=== PATIENT | female | born 1945 | race Caucasian/White ===

== ENCOUNTER 2018-07-25 11:16 | Observation (INO) ==
--- NOTE | 2018-07-25 11:28 | Emergency Department Note ---
Disposition Clinical Impression: Acute exacerbation of chronic obstructive airways disease, Influenza A Disposition: Admitted As Inpatient Condition: Fair Referrals: NONE,PCP [Non-Partnered Physician] - SOB HPI - General Chief Complaint: ED Shortness of Breath/Dyspnea Stated Complaint: Possible Pneumonia low O2 sats Time Seen by Provider: 07/25/18 11:25 Source: patient, family, other (Medical office) Mode of arrival: wheelchair Limitations: age Nursing Notes Reviewed: Yes Vital Signs Reviewed: Yes - History of Present Illness Patient presented to her family doctor today with cough and congestion is worsening over at least 3 weeks. She states she has been worse for especially last 2-3 days. At the office her saturation was 85% on room air, she is started on supplemental oxygen and brought over by family in a wheelchair from across the street. Family doctor is concern for possible pneumonia on top of her known COPD. Patient states she has had multiple family members who have had infl uenza. She states her cough is practically clear mucus. She believes a lot of this is "drainage". Her family volunteers that she has had a dry cough for years with her COPD but this definitely has been worse recently. She denies fevers but has had chills. She states she aches "all over". She has had all nausea and vomiting 2 days ago but has been maintaining fluid. She denies abdominal pain or diarrhea. She denies any lower extremity swelling or localized pain. She has generalized weakness. Pt Subjective Complaint: shortness of breath, cough Onset (ago): week(s) Context: recent illness Severity: moderate Consistency/Duration: constant, gradually worsening Improves with: nothing Worsens with: exertion, coughing Known history of: COPD Associated symptoms: Reports: cough, wheezing, sputum production, nausea/vomiting. Denies: chest pain, pain with inspiration, fever, orthopnea, lower extremity pain, polyuria, polydipsia, parasthesias, palpitations, hemop tysis, diaphoresis, syncope, abdominal pain, rash Cough present: Yes Cough Description: Voluntary, Productive, Hacking, Rattling Cough Frequency: Intermittent Sputum production: Yes Sputum Amount: Moderate Sputum Color: Clear - Related Data Home oxygen amount: none Home Medications Medication Instructions Recorded Confirmed Amlodipine 09/26/16 Losartan 09/26/16 Lovastatin 09/26/16 Paroxetine 09/26/16 Synthroid 09/26/16 Previous Rx's Medication Instructions Recorded Amoxicillin [Amoxil] 500 mg PO Q8HR #30 capsule 07/02/18 Montelukast [Singulair] 10 mg PO HS #7 tablet 07/02/18 Allergies Allergy/AdvReac Type Severity Reaction Status Date / Time propoxyphene Allergy See Verified 07/02/18 09:10 Comments All systems ED: reviewed and negative except as stated. Past Medical History - Past Medical History Attestation: Yes The following information was validated with the patient. Source: patient, old records reviewed, obtained from family, nursing notes reviewed Medical history: Reports: COPD, hyperlipidemia, hypertension, thyroid disease Surgical history: Reports: hysterectomy Psychiatric history: Reports: no psych history - Social History Smoking Status: Never smoker Smokeless Tobacco Status: No Alcohol use: Reports: none Drug use: Reports: none Physical Exam - General Limitations: no limitations General appearance: alert, in no apparent distress - Head Head exam: atraumatic, normocephalic, normal inspection - Eye Eye exam: Present: normal appearance, PERRL, EOMI - ENT ENT exam: normal exam, normal oropharynx, mucous membranes moist - Neck Neck exam: Present: normal inspection, full ROM, trachea midline. Absent: tenderness, meningismus, lymphadenopathy - Chest Chest inspection: Present: normal inspection, symmetric chest wall rise - Respiratory Respiratory exam: Present: normal lung sounds bilaterally, respiratory distress (Mild), prolonged expiratory phase. Absent: wheezes, accessory muscle use - Cardiovascular Cardiovascular exam: Present: regular rate, normal rhythm, tachycardia, normal heart sounds - Abdominal Exam Abdominal exam: Present: soft, Non-Tender, normal bowel sounds. Absent: tenderness, distention, guarding, rebound, rigidity - Extremities Exam Extremities exam: Present: normal inspection, full ROM, normal capillary refill. Absent: tenderness, pedal edema, calf tenderness - Expanded Lower Extremity Exam Neurovascular/Tendon exam: Present: normal capillary refill Gait: not tested/not observed - Neurological Exam Neurological exam: Present: alert, oriented X3 - Psychiatric Psychiatric exam: Present: normal affect, normal mood. Absent: agitated, anxious - Skin Skin exam: Present: warm, dry, intact, normal color. Absent: diaphoresis, pallor Course Course Narrative: 1250: All testing is been reviewed with the patient, family and Dr. Velez. She is been started on Tamiflu for influenza as well as azithromycin, Rocephin and IV steroids for COPD exacerbation. Verbal orders have been obtained for her further inpatient treatment. She is currently resting in stable condition with a saturation of 94% and a heart rate of 112. Vital Signs Temperature 97.6 F 07/25/18 11:17 Pulse Rate 115 07/25/18 11:17 Respiratory Rate 23 07/25/18 11:17 Blood Pressure 101/87 07/25/18 11:17 O2 Sat by Pulse Oximetry 83 07/25/18 11:17 Temperature 97.6 F 07/25/18 11:17 Pulse Rate 109 07/25/18 12:27 Respiratory Rate 15 07/25/18 12:27 Blood Pressure 143/60 07/25/18 12:27 O2 Sat by Pulse Oximetry 94 07/25/18 12:27 Oxygen Delivery Oxygen Delivery Aerosol Mask Shortness of Breath/Dyspnea - Differential Diagnosis Likely: acute exacerbation of chronic obstructive airways disease, congestive heart failure, pneumonia, asthma with exacerbation - Medical Records Medical records reviewed: Yes I reviewed the patient's medical records. - Lab Data Lab results reviewed: Yes I reviewed the patient's lab results. Lab results narrative: Influenza A is positive. Result diagrams: 07/25/18 12:00 07/25/18 12:00 Lab Results 07/25/18 07/25/18 07/25/18 Range/Units 12:00 12:00 12:00 WBC 10.2 (4.3-11.1) K/mcL RBC 4.52 (3.82-4.97) M/mcL Hgb 11.7 (11.5-15.4) g/dL Hct 36.2 (35.3-44.9) % MCV 80.1 L (83.0-100.0) fL MCH 25.9 L (28.0-33.3) pg MCHC 32.3 (31.6-35.5) g/dL RDW 13.7 (11.5-14.5) % Plt Count 176 (140-400) K/mcL MPV 10.5 (9.4-12.4) fL Immature Gran % 0.4 (0-4) % Seg Neutrophils % 92.9 % Lymphocytes % 3.6 % Monocytes % 3.0 % Eosinophils % 0.0 % Basophils % 0.1 % Neutrophils # 9.5 H (1.6-8.9) K/mcL Lymphocytes # 0.4 L (0.6-4.6) K/mcL Monocytes # 0.3 (0.0-1.3) K/mcL Eosinophils # 0.0 (0.0-0.6) K/mcL Basophils # 0.0 (0.0-0.2) K/mcL Sodium 130 L (136-145) mEq/L Potassium 3.7 (3.5-5.1) mEq/L Chloride 93 L (98-107) mEq/L Carbon Dioxide 28 (23-29) mEq/L BUN 12 (8-23) mg/dL Creatinine 0.90 (0.60-1.20) mg/dL Est GFR ( Amer) > 60 (> 60) Est GFR (Non-Af Amer) > 60 (> 60) BUN/Creatinine Ratio 13 (6-26) Glucose 120 H (70-105) mg/dL Calculated Osmolality 271 L (280-300) Lactic Acid 1.8 (0.5-2.2) mmol/L Calcium 8.6 (8.6-10.3) mg/dL Troponin I < 0.03 (< 0.04) ng/mL B-Natriuretic Peptide (Less than 100) pg/mL 07/25/18 Range/Units 12:00 WBC (4.3-11.1) K/mcL RBC (3.82-4.97) M/mcL Hgb (11.5-15.4) g/dL Hct (35.3-44.9) % MCV (83.0-100.0) fL MCH (28.0-33.3) pg MCHC (31.6-35.5) g/dL RDW (11.5-14.5) % Plt Count (140-400) K/mcL MPV (9.4-12.4) fL Immature Gran % (0-4) % Seg Neutrophils % % Lymphocytes % % Monocytes % % Eosinophils % % Basophils % % Neutrophils # (1.6-8.9) K/mcL Lymphocytes # (0.6-4.6) K/mcL Monocytes # (0.0-1.3) K/mcL Eosinophils # (0.0-0.6) K/mcL Basophils # (0.0-0.2) K/mcL Sodium (136-145) mEq/L Potassium (3.5-5.1) mEq/L Chloride (98-107) mEq/L Carbon Dioxide (23-29) mEq/L BUN (8-23) mg/dL Creatinine (0.60-1.20) mg/dL Est GFR ( Amer) (> 60) Est GFR (Non-Af Amer) (> 60) BUN/Creatinine Ratio (6-26) Glucose (70-105) mg/dL Calculated Osmolality (280-300) Lactic Acid (0.5-2.2) mmol/L Calcium (8.6-10.3) mg/dL Troponin I (< 0.04) ng/mL B-Natriuretic Peptide 30 (Less than 100) pg/mL - Radiology Data Radiology results reviewed: Yes I reviewed the patient's radiology results. Single view chest x-ray is performed. This shows a small right lower lobe area of atelectasis/infiltrate without other effusion, pneumothorax, foreign body or heart failure. The cardiac silhouette is normal. I do not see abnormality to the osseous structures of the chest. This is on my interpretation. Impressions Chest X-Ray 07/25/18 11:40 IMPRESSION: No convincing evidence of pneumonia or edema. Mild linear bibasilar opacity, likely atelectasis or scarring. D/ / Tahir Marrero MD / Tahir Marrero MD Interpreting Provider: Tahir Marrero MD - EKG Data EKG attestation: Yes I reviewed and interpreted this EKG. EKG shows normal: Reports: sinus rhythm, axis, intervals, QRS complexes, ST-T waves Rate: Reports: tachycardia (112) Interpretation: Reports: no acute changes
[2018-07-25] MEDS ORDERED: Azithromycin 500 MG in D5% in Water 250 ML IVPB ONE (11:40)
[2018-07-25] MEDS ORDERED: Albuterol 2.5 MG/3 ML NEBULIZER IH ONE (11:40)
[2018-07-25] MEDS ORDERED: cefTRIAXone 1,000 MG in Water for inj. (sterile) 20 ML 10 ML IVP ONE (11:40)
[2018-07-25] MEDS ORDERED: 0.9 % Sodium Chloride 1,000 ML IVC ONE (11:40)
[2018-07-25] MEDS ORDERED: methylPREDNISolone 125 MG/2 ML VIAL IVP ONE (11:40)
[2018-07-25 12:10] LABS: Basophils % 0.1 %; Hematocrit 36.2 % (35.3-44.9); Hemoglobin 11.7 g/dL (11.5-15.4); Immature Granulocytes % 0.4 % (0-4); Lymphocytes # 0.4 K/mcL (0.6-4.6); Lymphocytes % 3.6 %; Mean Corpuscular HGB Conc 32.3 g/dL (31.6-35.5); Mean Corpuscular Hemoglobin 25.9 pg (28.0-33.3); Mean Corpuscular Volume 80.1 fL (83.0-100.0); Mean Platelet Volume 10.5 fL (9.4-12.4); Monocytes # 0.3 K/mcL (0.0-1.3); Neutrophils # 9.5 K/mcL (1.6-8.9); Platelet Count 176 K/mcL (140-400); Red Blood Count 4.52 M/mcL (3.82-4.97); Red Cell Distribution Width 13.7 % (11.5-14.5); Segmented Neutrophils % 92.9 %
[2018-07-25 12:33] LABS: BUN/Creatinine Ratio 13 (6-26); Blood Urea Nitrogen 12 mg/dL (8-23); Calcium 8.6 mg/dL (8.6-10.3); Carbon Dioxide 28 mEq/L (23-29); Chloride 93 mEq/L (98-107); Glucose 120 mg/dL (70-105); Osmolality,Calculated 271 (280-300); Potassium 3.7 mEq/L (3.5-5.1); Sodium 130 mEq/L (136-145); eGFR For Non-African Americans > 60 (> 60)
[2018-07-25 12:34] LABS: Troponin I < 0.03 ng/mL (< 0.04)
[2018-07-25] MEDS ORDERED: Mag Hydrox/Al Hydrox/Simeth 30 ML UDC PO PRN (14:07)
[2018-07-25] MEDS ORDERED: Naloxone 0.4 MG/ML INJ IVP PRN (14:07)
[2018-07-25] MEDS ORDERED: MOM Conc 10 ML UD.LIQ PO PRN (14:07)
[2018-07-25] MEDS ORDERED: Albuterol 2.5 MG/3 ML NEBULIZER IH PRN (14:07)
[2018-07-25] MEDS ORDERED: 0.9 % Sodium Chloride 1,000 ML IVC SCH (14:07)
[2018-07-25] MEDS ORDERED: Ondansetron ODT 4 MG TAB.RAPDIS SL PRN (14:07)
[2018-07-25] MEDS ORDERED: Ondansetron 4 MG/2 ML VIAL IVP PRN (14:07)
[2018-07-25] MEDS ORDERED: Ipratropium/Albuterol Neb 3 ML IH SCH (16:00)
--- NOTE | 2018-07-25 17:15 | Internal Med History&Physical ---
Date of Encounter: 07/25/18 Time of Encounter: 16:40 Assessment and Plan (1) Influenza A Current visit: Yes Status: Acute She has been started on Tamiflu and was given Rocephin and Zithromax with Solu- Medrol in emergency room. Antibiotics and oral steroids with Tamiflu will be continued. Lactobacillus will be given. Further workup will be done as needed. (2) Hypertension Current visit: Yes Status: Chronic Her home medication doses are not confirmed. Blood pressure will be monitored. Qualifiers: Hypertension type: essential hypertension Qualified Code(s): I10 - Essential (primary) hypertension (3) Microcytosis Current visit: Yes Status: Acute Iron studies will be ordered in a.m. (4) Hypothyroidism Current visit: Yes Status: Chronic TSH will be checked in a.m. Qualifiers: Hypothyroidism type: unspecified Qualified Code(s): E03.9 - Hypothyroidism, unspecified (5) Hyperlipidemia Current visit: Yes Status: Chronic Continue lovastatin. Qualifiers: Hyperlipidemia type: unspecified Qualified Code(s): E78.5 - Hyperlipidemia, unspecified Internal Medicine - H&P: HPI Chief complaint: cough, vomiting Admitted From: Emergency Dept Plans for Post Hospital Care: Home History of present illness: Ms. Cheung is a 73 year old female who was sent to emergency room by her PCP with four-week history of minimally productive cough. She had sensation of chills, pharyngitis, and 4-5 episodes of nonbloody vomiting in the past 2 days. She denies diarrhea. She had diffuse myalgias and arthralgias. She saw her PCP this morning who directed her to emergency room. She was evaluated and found to have influenza A. She was admitted to [facility] floor for ongoing care needs. Respiratory history is significant for being a lifelong nonsmoker. She claims a diagnosis of COPD and states PFTs were done approximately 2 years ago at [facility] but I could not locate these in the archive records. She does not use home oxygen. She has not been tested for sleep apnea. Past Med Surg Social Fam HX - Past Medical History Medical history: COPD, hyperlipidemia, hypertension, thyroid disease Psychiatric history: no psych history - Past Surgical History Surgical History: hysterectomy - Social History Smoking Status: Never smoker Smokeless Tobacco Status: No Alcohol use: none Drug use: none Internal Medicine - H&P: Meds Amlodipine 5 mg PO DAILY 05/06/17 [History] Losartan 25 mg PO DAILY 09/26/16 [History] Lovastatin 40 mg PO DAILY 09/26/16 [History] Paroxetine 50 mg PO DAILY 09/26/16 [History] Synthroid 88 mcg PO DAILY 09/26/16 [History] Montelukast [Singulair] 10 mg PO HS #7 tablet 07/02/18 [Rx] Allergy/AdvReac Type Severity Reaction Status Date / Time propoxyphene Allergy See Verified 07/02/18 09:10 Comments All Systems PM: A 10-system review of systems was performed and is negative for pertinent findings except as documented above in the HPI. Review of systems: Gen.: She states her weight has been stable the past few months Cardiovascular: She has history of hypertension but denies ID heart failure DVT or pulmonary embolus. She reports predictable chest pain on exertion. She reports having heart cath approximately 2016 without intervention. She states this was done at [facility] but I could not find this in the archive records. Respiratory: As per history of present illness GI: She denies disorders of her liver gallbladder or exocrine pancreas : She had remote kidney stones. She has had urinary incontinence since onset of respiratory symptoms 1 month ago. Neurologic: She denies large distribution strokes or seizures. Endocrine: She has hypothyroidism and hyperlipidemia. She denies known diabetes. Hematology/oncology: She denies known internal malignancies. She has history of anemia that has now resolved. She was unaware she had microcytosis. Psychiatric: She has depression but denies significant anxiety or other mental health diagnosis. Mus[place] skeletal: She claims rheumatoid arthritis. She had remote left arm fracture with surgical repair. She denies other bone joint or muscle disorders. - Constitutional Vitals: Temp Pulse Resp BP Pulse Ox 98.3 F 104 22 130/66 91 07/25/18 15:04 07/25/18 15:04 07/25/18 15:04 07/25/18 15:04 07/25/18 15:04 Exam: Gen.: She is a well-developed well-nourished female lying in bed who appears in no acute distress at present time HEENT: Head is atraumatic and normocephalic. Eyes: EOMI. There is no scleral icterus. Mouth: Mucosa is moist. Neck: Supple and nontender. There is no thyromegaly or adenopathy noted. Heart: Regular without murmurs gallops or ectopics Lungs: She has a few scattered rhonchi. No egophony or inspiratory crackles are heard. Abdomen: Soft and nontender. No masses or guarding are noted. Extremities: There is no cyanosis edema or clubbing noted. Dorsalis pedis and posttibial pulses are trace palpable bilaterally. Neurologic: Mental status: She is talkative and a fair to good historian. She has difficulty remembering some details of her history. Cranial nerves: Smile is symmetric. Forehead wrinkles bilaterally. Tongue protrudes midline. EOMI. Motor: There is no pronator drift. Cerebellar: Finger to nose is intact bilaterally. Skin: Warm and dry Internal Med - H&P Results - Labs CBC & Chem 7: 07/25/18 12:00 07/25/18 12:00 Labs: Short CBC 07/25/18 Range/Units 12:00 WBC 10.2 (4.3-11.1) K/mcL Hgb 11.7 (11.5-15.4) g/dL Hct 36.2 (35.3-44.9) % Plt Count 176 (140-400) K/mcL Neutrophils # 9.5 H (1.6-8.9) K/mcL BMP 07/25/18 12:00 Sodium 130 L Potassium 3.7 Chloride 93 L Carbon Dioxide 28 BUN 12 Creatinine 0.90 Glucose 120 H Calcium 8.6 Cardiac Enzymes 07/25/18 Range/Units 12:00 Troponin I < 0.03 (< 0.04) ng/mL - Impressions ITS Impressions Chest X-Ray 07/25/18 11:40 IMPRESSION: No convincing evidence of pneumonia or edema. Mild linear bibasilar opacity, likely atelectasis or scarring. D/ / 07/25/2018 12:18:58 Tahir Marrero MD / sapna Interpreting Provider: Tahir Marrero MD
[2018-07-25] MEDS: 0.9 % Sodium Chloride w KCl 20 MEQ/1,000 ML MLS IVC SCH (18:02)
[2018-07-25] MEDS: predniSONE 20 MG TABLET PO SCH (18:02)
[2018-07-25] MEDS: Budesonide/Formoterol 160/4.5 1 PUFF INH IH SCH ×2 (18:36→22:12)
[2018-07-25] MEDS: Oseltamivir Phosphate 30 MG CAPSULE PO SCH (20:12)
[2018-07-25] MEDS: Lactobacillus 1 EACH CAP.SPRINK PO SCH (20:13)
[2018-07-26] MEDS: 0.9 % Sodium Chloride w KCl 20 MEQ/1,000 ML MLS IVC SCH (06:01)
[2018-07-26 06:23] LABS: Basophils % 0.1 %; Hematocrit 35.5 % (35.3-44.9); Hemoglobin 11.3 g/dL (11.5-15.4); Immature Granulocytes % 0.9 % (0-4); Lymphocytes # 0.5 K/mcL (0.6-4.6); Mean Corpuscular HGB Conc 31.8 g/dL (31.6-35.5); Mean Corpuscular Hemoglobin 25.5 pg (28.0-33.3); Mean Corpuscular Volume 80.1 fL (83.0-100.0); Mean Platelet Volume 10.4 fL (9.4-12.4); Monocytes # 0.3 K/mcL (0.0-1.3); Monocytes % 3.1 %; Neutrophils # 9.6 K/mcL (1.6-8.9); Platelet Count 176 K/mcL (140-400); Red Blood Count 4.43 M/mcL (3.82-4.97); Red Cell Distribution Width 13.6 % (11.5-14.5); Segmented Neutrophils % 90.9 %
[2018-07-26 07:23] LABS: Alanine Aminotransferase 9 Units/L (7-52); Albumin 3.1 g/dL (3.5-5.7); Alkaline Phosphatase 83 Units/L (34-104); Aspartate Amino Transferase 18 Units/L (13-39); BUN/Creatinine Ratio 19 (6-26); Bilirubin,Total 0.3 mg/dL (0.3-1.0); Blood Urea Nitrogen 12 mg/dL (8-23); Calcium 8.4 mg/dL (8.6-10.3); Carbon Dioxide 27 mEq/L (23-29); Chloride 105 mEq/L (98-107); Globulin 3.1 g/dL (2.4-3.5); Glucose 144 mg/dL (70-105); Magnesium 2.1 mg/dL (1.6-2.6); Osmolality,Calculated 290 (280-300); Potassium 3.3 mEq/L (3.5-5.1); Sodium 139 mEq/L (136-145); Total Protein 6.2 g/dL (6.4-8.9); eGFR For Non-African Americans > 60 (> 60)
[2018-07-26] MEDS: predniSONE 20 MG TABLET PO SCH (07:46)
[2018-07-26] MEDS: Lactobacillus 1 EACH CAP.SPRINK PO SCH ×2 (08:36→21:00)
[2018-07-26] MEDS: Oseltamivir Phosphate 30 MG CAPSULE PO SCH ×2 (08:38→21:00)
[2018-07-26 09:07] LABS: Folate 10.1 ng/mL (3.0-16.0); Platelet Estimate Normal (Normal)
[2018-07-26] MEDS ORDERED: Acetaminophen 325 MG TABLET PO PRN (09:32)
[2018-07-26] MEDS: Budesonide/Formoterol 160/4.5 1 PUFF INH IH SCH ×2 (10:21→22:45)
[2018-07-26 10:26] LABS: Thyroid Stimulating Hormone 0.323 mcIU/mL (0.340-5.600)
--- NOTE | 2018-07-26 11:42 | Internal Med Progress Note ---
Date of Encounter: 07/26/18 Time of Encounter: 11:34 - Assessment and plan (1) Influenza A Current Visit: Yes Status: Acute Assessment and plan: July 26. Continue Tamiflu. Antibiotics and probiotics will also be continued since WBC differential shows significant left shift. (2) Hypertension Current Visit: Yes Status: Chronic Assessment and plan: July 26. Restart losartan 25 mg daily. Remain off amlodipine at this time. Qualifiers: Hypertension type: essential hypertension Qualified Code(s): I10 - Essential (primary) hypertension (3) Microcytosis Current Visit: Yes Status: Acute Assessment and plan: July 26. Iron studies pending. (4) Hypothyroidism Current Visit: Yes Status: Chronic Assessment and plan: July 26. TSH minimally low at 0.323. Continue present dose Synthroid Qualifiers: Hypothyroidism type: unspecified Qualified Code(s): E03.9 - Hypothyroidism, unspecified (5) Hyperlipidemia Current Visit: Yes Status: Chronic Assessment and plan: July 26. Continue lovastatin Qualifiers: Hyperlipidemia type: unspecified Qualified Code(s): E78.5 - Hyperlipidemia, unspecified (6) B12 deficiency Current Visit: Yes Status: Acute Assessment and plan: July 26. She will receive a B12 injection. (7) Hypokalemia Current Visit: Yes Status: Acute Assessment and plan: July 26. Continue supplemental potassium. Recheck labs in a.m. - Subjective Interval history: July 26. She has no new complaints and feels better. She does not feel back to her baseline yet. - Constitutional Vitals: Temp Pulse Resp BP Pulse Ox 97.5 F L 62 14 144/84 99 07/26/18 06:17 07/26/18 06:17 07/26/18 10:21 07/26/18 06:17 07/26/18 10:21 Exam: She is lying in bed and appears in minimal respiratory distress. Oxygen saturation is 97% per bedside monitor with oxygen by nasal cannula in use. I reviewed her medications and lab results. Internal Medicine: Result - Labs CBC & Chem 7: 07/26/18 06:12 07/26/18 06:12 Labs: Short CBC 07/25/18 07/26/18 Range/Units 12:00 06:12 WBC 10.2 10.6 (4.3-11.1) K/mcL Hgb 11.7 11.3 L (11.5-15.4) g/dL Hct 36.2 35.5 (35.3-44.9) % Plt Count 176 176 (140-400) K/mcL Neutrophils # 9.5 H 9.6 H (1.6-8.9) K/mcL BMP 07/25/18 07/26/18 12:00 06:12 Sodium 130 L 139 D Potassium 3.7 3.3 L Chloride 93 L 105 Carbon Dioxide 28 27 BUN 12 12 Creatinine 0.90 0.63 Glucose 120 H 144 H Calcium 8.6 8.4 L Cardiac Enzymes 07/25/18 Range/Units 12:00 Troponin I < 0.03 (< 0.04) ng/mL Liver Function 07/26/18 Range/Units 06:12 Total Bilirubin 0.3 (0.3-1.0) mg/dL AST 18 (13-39) Units/L ALT 9 (7-52) Units/L Alkaline Phosphatase 83 (34-104) Units/L Albumin 3.1 L (3.5-5.7) g/dL - Impressions Impressions Chest X-Ray 07/25/18 11:40 IMPRESSION: No convincing evidence of pneumonia or edema. Mild linear bibasilar opacity, likely atelectasis or scarring. D/ / 07/25/2018 12:18:58 Tahir Marrero MD / sapna Interpreting Provider: Tahir Marrero MD Consult Discharge Plan - Plan
[2018-07-26] MEDS ORDERED: Cyanocobalamin (B-12) 1,000 MCG/ML VIAL IM ONE (11:47)
[2018-07-26] MEDS ORDERED: Azithromycin 500 MG in D5% in Water 250 ML IVPB SCH (12:00)
[2018-07-26] MEDS ORDERED: cefTRIAXone 2,000 MG in Water for inj. (sterile) 20 ML 20 ML IVPB SCH (12:00)
[2018-07-26 14:03] LABS: Ferritin 126 ng/mL (10-120); Iron < 10 mcg/dL (50-170); Transferrin 225 mg/dL (203-362)
[2018-07-26] MEDS: predniSONE 10 MG TABLET PO SCH (16:26)
--- NOTE | 2018-07-26 21:34 | Electrocardiograph Report ---
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
[2018-07-27 05:55] LABS: Basophils % 0.1 %; Hematocrit 32.9 % (35.3-44.9); Hemoglobin 10.5 g/dL (11.5-15.4); Immature Granulocytes % 0.6 % (0-4); Lymphocytes % 8.7 %; Mean Corpuscular HGB Conc 31.9 g/dL (31.6-35.5); Mean Corpuscular Hemoglobin 25.6 pg (28.0-33.3); Mean Corpuscular Volume 80.2 fL (83.0-100.0); Mean Platelet Volume 11.4 fL (9.4-12.4); Monocytes # 0.4 K/mcL (0.0-1.3); Monocytes % 3.8 %; Neutrophils # 9.5 K/mcL (1.6-8.9); Platelet Count 186 K/mcL (140-400); Segmented Neutrophils % 86.8 %
[2018-07-27 06:10] LABS: BUN/Creatinine Ratio 24 (6-26); Blood Urea Nitrogen 14 mg/dL (8-23); Calcium 8.2 mg/dL (8.6-10.3); Carbon Dioxide 24 mEq/L (23-29); Chloride 106 mEq/L (98-107); Glucose 118 mg/dL (70-105); Osmolality,Calculated 290 (280-300); Potassium 3.4 mEq/L (3.5-5.1); Sodium 139 mEq/L (136-145); eGFR For Non-African Americans > 60 (> 60)
[2018-07-27 06:45] VITALS: BP 148/69
--- NOTE | 2018-07-27 09:36 | Discharge Summary ---
Orders not resulted at time of discharge: Pending orders 07/25/18 12:09 Culture,Blood [] Stat Date of Encounter: 07/27/18 Time of Encounter: 09:24 - Discharge Diagnosis (1) Influenza A Priority: Primary Status: Acute (2) Hypertension Priority: Secondary Status: Chronic Qualifiers: Hypertension type: essential hypertension Qualified Code(s): I10 - Essential (primary) hypertension (3) Hypothyroidism Priority: Secondary Status: Chronic Qualifiers: Hypothyroidism type: unspecified Qualified Code(s): E03.9 - Hypothyroidism, unspecified (4) Hyperlipidemia Priority: Secondary Status: Chronic Qualifiers: Hyperlipidemia type: unspecified Qualified Code(s): E78.5 - Hyperlipidemia, unspecified (5) B12 deficiency Priority: Secondary Status: Acute (6) Iron deficiency anemia Priority: Secondary Status: Acute Qualifiers: Iron deficiency anemia type: unspecified iron deficiency Qualified Code(s): D50.9 - Iron deficiency anemia, unspecified (7) Hypokalemia Priority: Secondary Status: Acute Hospital course: Ms. Cheung is a 73 year old female who was sent to emergency room by her PCP with four-week history of minimally productive cough. She had sensation of chills, pharyngitis, and 4-5 episodes of nonbloody vomiting in the past 2 days. She denies diarrhea. She had diffuse myalgias and arthralgias. She saw her PCP this morning who directed her to emergency room. She was evaluated and found to have influenza A. She was admitted to [facility] floor for ongoing care needs. She was started on Tamiflu. IV Rocephin and Zithromax with steroids were added for possible bacterial infection. She had good clinical response with gradual decrease in left shift on WBC differential. She remained afebrile during hospitalization. She will continue with Tamiflu and antibiotics/probiotic for 3 additional days at discharge. Potassium level decreased to 3.3 on July 26. Supplemental potassium was given and will be continued for 3 additional days at discharge. Hemoglobin decreased to 10.5 on day of discharge. Anemia testing showed iron < 10, transferrin 225, ferritin 126, B12 202, and folate 10.1. She was given a B12 injection and started on oral B12 supplement. She will start ferrous sulfate with ascorbic acid. Her PCP can monitor labs. TSH returned minimally low at 0.323. Her PCP can follow up as needed. On July 27 she was stable for discharge home. She will follow with her PCP Marzena Casas CNP within 1 week. Room air oximetry will be checked on 6 minute walk prior to discharge. - Time Spent with Patient Total time spent providing and/or coordinating discharge services: - Discharge Medications Prescriptions: New Cefuroxime PO [Ceftin] 500 mg PO Q12HR #6 tablet Ascorbic Acid [C-500] 500 mg PO DAILY #30 tablet Azithromycin [Zithromax] 250 mg PO DAILY #3 tablet Budesonide/Formoterol 160/4.5 [Symbicort 160/4.5] 2 puff IH BIDR #1 inh Cyanocobalamin (B-12) [Vitamin B12] 1,000 mcg PO DAILY #30 tablet Ferrous Sulfate 325 mg PO DAILY #30 tablet Lactobacillus [Culturelle] 1 each PO BID #6 cap.sprink Oseltamivir Phosphate [Tamiflu] 30 mg PO BID #6 capsule Potassium Chloride 20 meq PO DAILY #3 tab.er.prt predniSONE [PredniSONE] 10 mg PO BIDWM #6 tablet Continue Montelukast [Singulair] 10 mg PO HS #7 tablet Synthroid 88 mcg PO DAILY Paroxetine 50 mg PO DAILY Lovastatin 40 mg PO DAILY Losartan 25 mg PO DAILY Amlodipine 5 mg PO DAILY Home Medications: Amlodipine 5 mg PO DAILY 09/26/16 [History] Losartan 25 mg PO DAILY 09/26/16 [History] Lovastatin 40 mg PO DAILY 09/26/16 [History] Paroxetine 50 mg PO DAILY 09/26/16 [History] Synthroid 88 mcg PO DAILY 09/26/16 [History] Montelukast [Singulair] 10 mg PO HS #7 tablet 07/02/18 [Rx] Ascorbic Acid [C-500] 500 mg PO DAILY #30 tablet 07/27/18 [Rx] Azithromycin [Zithromax] 250 mg PO DAILY #3 tablet 07/27/18 [Rx] Budesonide/Formoterol 160/4.5 [Symbicort 160/4.5] 2 puff IH BIDR #1 inh 07/27/18 [Rx] Cefuroxime PO [Ceftin] 500 mg PO Q12HR #6 tablet 07/27/18 [Rx] Cyanocobalamin (B-12) [Vitamin B12] 1,000 mcg PO DAILY #30 tablet 07/27/18 [Rx] Ferrous Sulfate 325 mg PO DAILY #30 tablet 07/27/18 [Rx] Lactobacillus [Culturelle] 1 each PO BID #6 cap.sprink 07/27/18 [Rx] Oseltamivir Phosphate [Tamiflu] 30 mg PO BID #6 capsule 07/27/18 [Rx] Potassium Chloride 20 meq PO DAILY #3 tab.er.prt 07/27/18 [Rx] predniSONE [PredniSONE] 10 mg PO BIDWM #6 tablet 07/27/18 [Rx] Allergies/Adverse Reactions: Allergy/AdvReac Type Severity Reaction Status Date / Time propoxyphene Allergy See Verified 07/02/18 09:10 Comments Date of admission: 07/25/18 13:24 Primary care physician: Marzena Casas - Constitutional Vitals: Temp Pulse Resp BP Pulse Ox 97.9 F 71 16 148/69 96 07/27/18 06:40 07/27/18 06:40 07/27/18 06:40 07/27/18 06:40 07/27/18 06:40 - Patient Status Disposition: Home, Self-Care Condition: Fair - Discharge Instructions Follow Up With: Marzena Casas, [employer]ENDER [Primary Care Provider] - 1 week Forms: ED Satisfaction Letter - Diet and Activity Activity: resume usual activities as tolerated Diet: advance to your usual diet
[2018-07-27] MEDS: Lactobacillus 1 EACH CAP.SPRINK PO SCH (09:49)
[2018-07-27] MEDS: Oseltamivir Phosphate 30 MG CAPSULE PO SCH (09:49)
[2018-07-27] MEDS: predniSONE 10 MG TABLET PO SCH (09:49)
[2018-07-27] MEDS: Budesonide/Formoterol 160/4.5 1 PUFF INH IH SCH (10:49)
== END 2018-07-27 11:32 | disposition home or self-care (01) ==
LOC: INPPIK 11:16 → EMEROOPIK 11:16 → INPPIK 14:24
PROVIDERS: ADMIT Internal Medicine; ATTEND Internal Medicine